=== PATIENT | female | born 1985 | race Caucasian/White ===

== ENCOUNTER 2019-04-14 23:10 | Emergency (ER) | payer SELFPAY ==
[~2019-04-14] VITALS: Ht 170.2 cm; Wt 68.0 kg
--- NOTE | 2019-04-14 23:20 | NUR ---
ED Nurse Note: PT BRAD ROTHMAN [id number] FROM [place] C/O HEARING VOICES. DENIES HARM TO SELF OR OTHER. DENIES SI. VSS, ERMD AT BEDSIDE. PT IS NOT ANSWERING QUESTIONS.
--- NOTE | 2019-04-14 23:21 | Emergency Room Report ---
History of Present Illness General Chief Complaint: Behavioral Complaint Source: EMS Present Illness HPI 33-year-old female unknown psychiatric history presents with hearing voices, patient was seeing a gas station and told the attendant that she was hearing voices, unknown start time, unknown aggravating alleviating factors severity is moderate, constant, patient does not endorse taking psychiatric medications the voices are telling her that she is stupid: Denies any SI HI, history is limited because she selectively answers questions and stares off into the distance she denies taking any drugs patient presents for evaluation Allergies: Coded Allergies: No Known Allergies (Unverified , 04/14/19) Patient History Limited by: medical condition - Hearing voices Past Medical History: see triage record Last Menstrual Period: unk Reviewed Nursing Documentation: PMH: Agreed; PSxH: Agreed Review of Systems All Other Systems: limited - Hearing voices Physical Exam Vital Signs Date Time Temp Pulse Resp B/P (MAP) Pulse Ox O2 Delivery O2 Flow Rate FiO2 04/14/19 23:17 98.2 106 14 133/85 (101) 100 Room Air Sp02 EP Interpretation: reviewed, normal General Appearance: well appearing, no apparent distress, alert Head: normocephalic, atraumatic Eyes: bilateral eye PERRL, bilateral eye EOMI ENT: uvula midline, moist mucus membranes Neck: supple, thyroid normal, supple/symm/no masses Respiratory: lungs clear, no respiratory distress, no retraction, no accessory muscle use Cardiovascular #1: normal peripheral pulses, regular rate, rhythm, no edema, no gallop, no murmur Gastrointestinal: non tender, soft, no guarding, no rebound Musculoskeletal: normal inspection Neurologic: alert, oriented x3 Psychiatric: other - Flat affect Skin: no rash, warm/dry Medical Decision Making Diagnostic Impression: Primary Impression: Behavioral disorder Additional Impression: Marijuana intoxication Qualified Codes: F12.920 - Cannabis use, unspecified with intoxication, uncomplicated ER Course 33-year-old female presents with hearing voices differential diagnosis includes acute intoxication, schizophrenia, mental illness Patient found to have a positive tox screen for marijuana reevaluation at 4:11 AM, patient woke up was back to normal after administration of sedatives Counseled patient that she may have had an adverse reaction to marijuana tachycardia resolved Disposition home with return precautions Laboratory Tests Test 04/14/19 23:30 04/15/19 01:20 White Blood Count 10.2 K/UL (4.8-10.8) Red Blood Count 4.55 M/UL (4.20-5.40) Hemoglobin 15.2 G/DL (12.0-16.0) Hematocrit 42.8 % (37.0-47.0) Mean Corpuscular Volume 94 FL (80-99) Mean Corpuscular Hemoglobin 33.4 PG (27.0-31.0) H Mean Corpuscular Hemoglobin Concent 35.5 G/DL (32.0-36.0) Red Cell Distribution Width 11.5 % (11.6-14.8) L Platelet Count 196 K/UL (150-450) Mean Platelet Volume 9.3 FL (6.5-10.1) Neutrophils (%) (Auto) 71.2 % (45.0-75.0) Lymphocytes (%) (Auto) 21.5 % (20.0-45.0) Monocytes (%) (Auto) 5.6 % (1.0-10.0) Eosinophils (%) (Auto) 1.1 % (0.0-3.0) Basophils (%) (Auto) 0.6 % (0.0-2.0) Sodium Level 145 MMOL/L (136-145) Potassium Level 4.3 MMOL/L (3.5-5.1) Chloride Level 109 MMOL/L (98-107) H Carbon Dioxide Level 23 MMOL/L (21-32) Anion Gap 13 mmol/L (5-15) Blood Urea Nitrogen 8 mg/dL (7-18) Creatinine 0.8 MG/DL (0.55-1.30) Estimate Glomerular Filtration Rate > 60 mL/min (>60) Glucose Level 100 MG/DL (74-106) Calcium Level 10.0 MG/DL (8.5-10.1) Total Bilirubin 0.5 MG/DL (0.2-1.0) Aspartate Amino Transferase (AST) 20 U/L (15-37) Alanine Aminotransferase (ALT) 23 U/L (12-78) Alkaline Phosphatase 51 U/L (46-116) Total Protein 8.0 G/DL (6.4-8.2) Albumin 4.1 G/DL (3.4-5.0) Globulin 3.9 g/dL Albumin/Globulin Ratio 1.1 (1.0-2.7) Lipase 115 U/L (73-393) Human Chorionic Gonadotropin, Quant < 1 mIU/mL (1-6) L Salicylates Level 0.8 ug/mL (2.8-20) L Acetaminophen Level < 2 MCG/ML (10-30) L Serum Alcohol 40 mg/dL Urine Color Yellow Urine Appearance Clear Urine pH 6 (4.5-8.0) Urine Specific [place] 1.015 (1.005-1.035) Urine Protein Negative (NEGATIVE) Urine Glucose (UA) Negative (NEGATIVE) Urine Ketones 1+ (NEGATIVE) H Urine Blood 1+ (NEGATIVE) H Urine Nitrite Negative (NEGATIVE) Urine Bilirubin Negative (NEGATIVE) Urine Urobilinogen Normal MG/DL (0.0-1.0) Urine Leukocyte Esterase 1+ (NEGATIVE) H Urine RBC 0-2 /HPF (0 - 2) Urine WBC 0-2 /HPF (0 - 2) Urine Squamous Epithelial Cells Few /LPF (NONE/OCC) Urine Bacteria None /HPF (NONE) Urine Opiates Screen Negative (NEGATIVE) Urine Barbiturates Screen Negative (NEGATIVE) Phencyclidine (PCP) Screen Negative (NEGATIVE) Urine Amphetamines Screen Negative (NEGATIVE) Urine Benzodiazepines Screen Negative (NEGATIVE) Urine Cocaine Screen Negative (NEGATIVE) Urine Marijuana (THC) Screen Positive (NEGATIVE) H Last Vital Signs Date Time Temp Pulse Resp B/P (MAP) Pulse Ox O2 Delivery O2 Flow Rate FiO2 04/14/19 23:17 98.2 106 14 133/85 (101) 100 Room Air Disposition: HOME, SELF-CARE Condition: Stable Scripts Unable to Obtain Active Prescriptions or Reported Meds Referrals: [facility] Patient Instructions: Cannabis Use Disorder, Self-Destructive Behavior Additional Instructions: The patient was provided with discharge instructions, notified to follow-up with a primary care doctor and or specialist in the next 24-48 hours, and to return to the ED if they have worsening of their symptoms. Please note that this report is being documented using [employer] technology. This can lead to erroneous entry secondary to incorrect interpretation by the dictating instrument. George Meehan MD Apr 14, 2019 23:21
[2019-04-14] MEDS ORDERED: LORazepam Inj 2mg/ml 1ml IV ONE (23:30)
[2019-04-14] MEDS ORDERED: DiphenhydrAMINE 50mg/ml Inj IVP ONE (23:30)
[2019-04-14] MEDS ORDERED: Haloperidol 5mg/ml Inj IM ONE (23:30)
[2019-04-14 23:51] LABS: BASOPHILS % (AUTO) 0.6 % (0.0-2.0); EOSINOPHILS % (AUTO) 1.1 % (0.0-3.0); HEMATOCRIT 42.8 % (37.0-47.0); HEMOGLOBIN 15.2 G/DL (12.0-16.0); LYMPHOCYTES % (AUTO) 21.5 % (20.0-45.0); MEAN CORPUSCULAR VOLUME 94 FL (80-99); MONOCYTES % (AUTO) 5.6 % (1.0-10.0); NEUTROPHILS % (AUTO) 71.2 % (45.0-75.0); PLATELET COUNT 196 K/UL (150-450); RED BLOOD COUNT 4.55 M/UL (4.20-5.40); RED CELL DISTRIBUTION WIDTH 11.5 % (11.6-14.8); WHITE BLOOD COUNT 10.2 K/UL (4.8-10.8)
--- NOTE | 2019-04-15 | NUR ---
ED Nurse Note: IV ESTABLISHED ON LEFT AC 20G. BLOOD DRAWN AND SENT TO LAB. LINE INTACT AND PATENT.
[2019-04-15 00:02] LABS: ANION GAP 13 mmol/L (5-15); BLOOD UREA NITROGEN 8 mg/dL (7-18); CARBON DIOXIDE 23 MMOL/L (21-32); CHLORIDE 109 MMOL/L (98-107); CREATININE 0.8 MG/DL (0.55-1.30); POTASSIUM 4.3 MMOL/L (3.5-5.1); SODIUM 145 MMOL/L (136-145)
[2019-04-15 00:11] LABS: ALANINE AMINOTRANSFERASE 23 U/L (12-78); ALBUMIN 4.1 G/DL (3.4-5.0); ALBUMIN/GLOBULIN RATIO 1.1 (1.0-2.7); ALKALINE PHOSPHATASE 51 U/L (46-116); ASPARTATE AMINO TRANSFERASE 20 U/L (15-37); BILIRUBIN,TOTAL 0.5 MG/DL (0.2-1.0)
[2019-04-15 00:36] VITALS: BP 121/68
--- NOTE | 2019-04-15 01:00 | NUR ---
ED Nurse Note: URINE COLLECTED AND SENT TO LAB.
--- NOTE | 2019-04-15 01:30 | NUR ---
ED Nurse Note: PT IS SLEEPING. VSS, NAD. WILL CONTINUE TO MONITOR PATIENT.
[2019-04-15 01:54] LABS: APPEARANCE,URINE CLEAR; BILIRUBIN, URINE NEGATIVE (NEGATIVE); GLUCOSE, URINE (UA) NEGATIVE (NEGATIVE); KETONES,URINE 1+ (NEGATIVE); LEUKOCYTE ESTERASE ,URINE 1+ (NEGATIVE); NITRITE,URINE NEGATIVE (NEGATIVE); PH,URINE 6 (4.5-8.0); PROTEIN,URINE NEGATIVE (NEGATIVE); UROBILINOGEN,URINE NORMAL MG/DL (0.0-1.0)
[2019-04-15 01:58] LABS: COLOR,URINE YELLOW
--- NOTE | 2019-04-15 03:00 | NUR ---
ED Nurse Note: patient is calm and resting. NAD, VSS. Will continue to monitor patient.
[2019-04-15 05:30] VITALS: BP 121/62
--- NOTE | 2019-04-15 05:30 | NUR ---
Homeless Discharge: Patient is being discharged from medical care. Awake, alert and oriented x4. After care instructions, including referral to community resources were given. Patient verbalized understanding of After care instructions; at this time patient does not request medications, equipment or placement. Patient signed patient consent in the medical record for patient destination upon discharge. All medical devices such as IV and ID band were removed. Patient ambulated out with all personal belongings with steady gait. Nutrition provided upon discharge.
== END 2019-04-15 05:30 | disposition home or self-care (01) ==
LOC: EDBD 23:10 → EMR 23:42
DX: F91.9 Conduct disorder, unspecified (principal); F12.920 Cannabis use, unspecified with intoxication, uncomplicated
CPT/HCPCS: 36415; 80053; 80307; 81003; 83690; 84702; 85025; 96361; 96372; 96374; 96375; 99284; G0480; J1200; J1630; J7030